=== PATIENT | male | born 1990 | race African-American/Black ===

== ENCOUNTER 2018-11-19 23:01 | Emergency (ER) | payer SELFPAY | END 2018-11-20 00:28 | disposition left against medical advice (07) | LOC: ER 23:01 | DX: Z53.21 Procedure and treatment not carried out due to patient leaving prior to being seen by health care provider (principal) ==

== ENCOUNTER 2018-12-07 03:49 | Emergency (ER) | payer SELFPAY ==
[~2018-12-07] VITALS: Ht 175.3 cm; Wt 75.0 kg
[2018-12-07 06:02] LABS: CLARITY URINE TURBID (CLEAR); KETONES URINE TRACE (NEGATIVE); LEUKOCYTE ESTERASE URINE 3+ (NEGATIVE); NITRITE URINE NEGATIVE (NEGATIVE); OCCULT BLOOD URINE 3+ (NEGATIVE); PROTEIN URINE 2+ (NEGATIVE); SPECIFIC GRAVITY URINE 1.021 (1.005-1.030)
[2018-12-07 06:32] LABS: COLOR URINE BLOODY (YELLOW)
[2018-12-07] MEDS ORDERED: CEFTRIAXONE SODIUM 1 G/VIAL IM ONE (08:15)
[2018-12-07] MEDS ORDERED: LIDOCAINE HCL 1% 20ML VIAL (Pyxis) INJ INFIL ONE (08:15)
[2018-12-07] MEDS ORDERED: AZITHROMYCIN 500 MG TABLET PO ONE (08:30)
[2018-12-07 09:07] VITALS: BP 129/78
== END 2018-12-07 09:00 | disposition home or self-care (01) ==
LOC: ER 04:12
DX: N30.00 Acute cystitis without hematuria (principal); F12.10 Cannabis abuse, uncomplicated
CPT/HCPCS: 29105; 81003; 87077; 87086; 87186; 96372; 99283; J0696; J3490